=== PATIENT | male | born 1995 | race Caucasian/White ===

== ENCOUNTER 2017-01-13 20:36 | Emergency (ER) | payer BC ==
[2017-01-13 20:38] VITALS: BP 133/85; PULSE 100; RESP 16; TEMP 98.5; O2SAT 99
[2017-01-13] MEDS ORDERED: ACETAMINOPHEN/HYDROcodone 325 MG/5 MG TAB PO ONE (21:00)
[2017-01-13] MEDS ORDERED: IBUPROFEN 600 MG TAB PO ONE (21:00)
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
[2017-01-13] MEDS ORDERED: LIDOCAINE HCL 1% 50 ML VIAL INFIL ONE (21:30)
[2017-01-13] MEDS ORDERED: BUPIVACAINE HCL PF 0.5% 30 ML VIAL INFIL ONE (21:30)
[2017-01-13] MEDS ORDERED: HYDR-3516 PO (21:32)
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
[2017-01-13 22:16] VITALS: RESP 16
--- NOTE | 2017-01-13 22:36 | RADRPT ---
EXAM DATE/TIME: 01/13/2017 22:16 [facility] COMPARISON: No previous studies available for comparison. INDICATIONS : Right hand post reduction fifth metacarpal. MEDICAL HISTORY : None. SURGICAL HISTORY : None. ENCOUNTER: Initial ACUITY: 1 day PAIN SCORE: 10/10 LOCATION: Right hand FINDINGS: There is a dressing or cast along the medial aspect of the hand. There is fracturing of the distal fi fth metacarpal. There is minimal volar angulation. The metacarpal is otherwise aligned. CONCLUSION: Fracturing of the distal aspect of the fifth metacarpal. Patient appears to be in a dressing or cast medially. Geovany Alberto MD on January 13, 2017 at 22:33 Board Certified Radiologist. This report was verified electronically.
== END 2017-01-13 22:34 | disposition home or self-care (01) ==
LOC: NEPK 20:36
DX: S62.326A Displaced fracture of shaft of fifth metacarpal bone, right hand, initial encounter for closed fracture (principal); S30.811A Abrasion of abdominal wall, initial encounter; S40.212A Abrasion of left shoulder, initial encounter; S00.81XA Abrasion of other part of head, initial encounter; Z72.0 Tobacco use; Y04.8XXA Assault by other bodily force, initial encounter
CPT/HCPCS: 26605; 29125; 73120; 73130

== ENCOUNTER 2017-01-25 22:44 | Emergency (ER) | payer BC ==
[~2017-01-25] VITALS: Ht 162.6 cm; Wt 55.0 kg
[~2017-01-25 22:44] MED LIST: HYDR-3516 PO
[2017-01-25 22:45] VITALS: BP 134/83; PULSE 112; RESP 15; TEMP 98.9; O2SAT 98
--- NOTE | 2017-01-25 23:06 | PD ---
HPI Chief Complaint: Injury Time Seen by Provider: 22:54 Travel History International Travel<30 days: No Contact w/Intl Traveler<30days: No Traveled to known affect area: No History of Present Illness HPI 21-year-old [id number] male returns the ER 12 days after breaking his right hand for recheck. The patient states that he attempted to go to see to orthopedics but they did not participate with his insurance. He did not call his insurance to find out who does participate. He states that he wore his splint for about one week and then removed it. He's been using his hand without a splint now for the past week. He comes in because he is not having full range of motion of his hand and he has been having persistent discomfort. Pain is mild. Worse with movement. Some alleviation with remaining still. Denies any numbness or tingling. PFSH Past Medical History Narrative Medical Right fifth metacarpal fracture Tetanus Vaccination: < 5 Years Past Surgical History Other Surgery: Yes (SHRAPNEL REMOVAL CHEST, RUE. ) Social History Alcohol Use: No Tobacco Use: Yes Substance Use: No Allergies-Medications (Allergen,Severity, Reaction): Coded Allergies: No Known Allergies (Verified Allergy, Unknown, 01/13/17) Reported Meds & Prescriptions Reported Meds & Active Scripts Active Diclofenac Sodium DR (Diclofenac Sodium) 75 Mg Tabdr 75 Mg PO BID Review of Systems General / Constitutional: No: Fever Eyes: No: Visual changes HENT: No: Headaches Cardiovascular: No: Chest Pain or Discomfort Respiratory: No: Shortness of Breath Gastrointestinal: No: Abdominal Pain Genitourinary: No: Dysuria Musculoskeletal: No: Pain Skin: No Rash Neurologic: No: Weakness Psychiatric: No: Depression Endocrine: No: Polydipsia Hematologic/Lymphatic: No: Easy Bruising Physical Exam Narrative GENERAL: This is a well-nourished, well-developed patient, in no apparent distress. SKIN: No rashes, ecchymoses or lesions. Warm and dry. HEAD: Atraumatic. Normocephalic. EYES: PERRL, EOMI, no discharge or injection. No scleral icterus. EARS: Clear NOSE: Nasal turbinates appear normal. THROAT: Mucosa pink and moist. Airway patent. NECK: Trachea midline. supple, moves head freely. LUNGS: Clear to auscultation. CV: Regular in rhythm. ABDOMEN: Soft nontender. EXT: No clubbing cyanosis or edema. Examination the right hand reveals a deformity over the fifth metacarpal. He has tenderness to the distal third of the metacarpal area he has decreased range of motion at the MCP of the little finger. The skin is intact. He is neurovascular intact. Minimal pain. Minimal swelling. Data Data Last Documented VS Vital Signs Date Time Temp Pulse Resp B/P (MAP) Pulse Ox O2 Delivery O2 Flow Rate FiO2 01/25/17 22:45 98.9 112 15 134/83 (100) 98 Room Air Orders Orders Hand, Complete ([id number]) (01/25/17 23:00) Splint Or Brace Apply/Monitor (01/25/17 23:00) Ed Discharge Order (01/25/17 23:24) MDM Medical Decision Making Medical Screen Exam Complete: Yes Emergency Medical Condition: Yes Medical Record Reviewed: Yes Interpretation(s) Right hand: Patient saw has an angular fracture which appears to be slightly worsened than his initial post reduction 12 days ago.. Differential Diagnosis MDM: High Differential diagnoses: Fracture, sprain, strain, dislocation, contusion, neurovascular injury, delayed healing, nonunion, noncompliance Narrative Course We will obtain a repeat image today in place the patient back into a splint. He has been encouraged to call his insurance company to find out who participates with his insurance. The patient will be given the orthopedic Dr. Villagomez Diagnosis Primary Impression: Fracture of fifth metacarpal bone of right hand Qualified Codes: S62.336D - Displaced fracture of neck of fifth metacarpal bone, right hand, subsequent encounter for fracture with routine healing Referrals: Marek Villagomez III, MD 3 days Patient Instructions: General Instructions Additional Instructions: Rest. Elevation. Splint. Diclofenac. Follow-up with Dr. Villagomez orthopedic hand surgeon. Call your insurance to see if he participates. Return to the ER for emergencies. Med/Other Pt SpecificInfo: Prescription(s) given Scripts Diclofenac Sodium (Diclofenac Sodium DR) 75 Mg Tabdr 75 MG PO BID, #20 TAB 0 Refills Prov: Garett Ren MD 01/25/17 Disposition: 01 DISCHARGE HOME Condition: Stable Wade Archibald Jan 25, 2017 23:06
[2017-01-25] MEDS ORDERED: DICL75TA PO (23:07)
--- NOTE | 2017-01-25 23:30 | RADRPT ---
EXAM DATE/TIME: 01/25/2017 23:08 [facility] COMPARISON: HAND RIGHT COMPLETE ([id number]), January 13, 2017, 21:10. INDICATIONS : 5th metacarpal injury from punching. MEDICAL HISTORY : None. SURGICAL HISTORY : None. ENCOUNTER: Initial ACUITY: 1 day PAIN SCORE: 5/10 LOCATION: Right hand FINDINGS: There is fracture in the distal aspect of the fifth metacarpal. This was present on the prior exam. S ignificant change is not seen. There is some anterior angulation of the distal fragment. CONCLUSION: Boxer fracture of the fifth metacarpal which was present previously. Geovany Alberto MD on January 25, 2017 at 23:27 Board Certified Radiologist. This report was verified electronically.
== END 2017-01-26 00:30 | disposition home or self-care (01) ==
LOC: NEPK 22:44
DX: S62.336D Displaced fracture of neck of fifth metacarpal bone, right hand, subsequent encounter for fracture with routine healing (principal); X58.XXXD Exposure to other specified factors, subsequent encounter
CPT/HCPCS: 73130; 99283